=== PATIENT | male | born 1980 | race Caucasian/White ===

== ENCOUNTER 2016-07-20 15:29 | Emergency (ER) | payer OTHER ==
[~2016-07-20] VITALS: Ht 180.3 cm; Wt 121.5 kg
[~2016-07-20 15:29] MED LIST: KETO10TA PO; OXYC1TAB3 PO
[2016-07-20] MEDS ORDERED: IBUP-1050 PO (15:44)
[2016-07-20 16:11] VITALS: TEMP 36.9; Ht 180.3 cm; Wt 121.5 kg
--- NOTE | 2016-07-20 16:49 | DIAGNOSTIC IMAGING REPORT ---
RIGHT HAND MIN 3 VIEWS ROUTINE CLINICAL HISTORY: right hand pain- car part dropped on it Right trauma. Pain. COMPARISON: None. DISCUSSION: Mild soft tissue edema. No acute bony abnormality. Cortical margins are intact. IMPRESSION: Dorsal soft tissue edema. No acute bony abnormality. Electronically signed by: Kye Agee M.D. 07/20/2016 4:48 PM Dictated Date/Time: 07/20/2016 4:47 PM
[2016-07-20 17:11] VITALS: BP 153/106; PULSE 90; O2SAT 96
--- NOTE | 2016-07-20 17:13 | EMERGENCY ROOM VISIT NOTE ---
ED Visit Note First contact with patient: 16:10 CHIEF COMPLAINT: Hand pain HISTORY OF PRESENT ILLNESS: This 36-year-old male patient presented to the emergency department ambulatory complaining of pain in the right hand. The patient reports that 2 days ago, a heavy car part fell on his hand. The patient reports pain and swelling in the hand. He rates his discomfort an 8/ 10. With a history of compartment syndrome in this hand. He states he has not been seen recently for his hand, but had been seen by orthopedics locally over the summer. He reports numbness in the third fourth and fifth fingers. He denies any weakness. He is not taking any medications for pain. He denies any other injuries. REVIEW OF SYSTEMS: A 6 system review of systems was completed with positives and pertinent negatives in the HPI. ALLERGIES: Phenytoin, prochlorperazine MEDICATIONS: Gabapentin, Keppra PMH: Compartment syndrome, hand surgery SOCIAL HISTORY: The patient lives locally with family. PHYSICAL EXAM: Vital Signs: Reviewed Nurse's notes, vital signs stable. GENERAL : This is a 36-year-old male, in no acute distress, but appears to be in pain, well-developed, well-nourished. MUSCULOSKELETAL: There is moderate soft tissue swelling of the dorsal aspect of the right hand. There is no significant erythema or warmth. There are multiple well-healing surgical scars. There is diffuse tenderness over the right hand. Dictating Machine Mechanic strength 5/5. Full range of motion of the fingers. There is no laceration. Capillary refill less than 2 seconds. No tenderness of the fingers or wrist. Full range of motion of the wrist. No snuff box tenderness. Radial pulse 2+. NEURO: Alert and oriented to person, place, and time. Normal sensation to light and sharp touch. RADIOGRAPHIC FINDINGS: RIGHT HAND MIN 3 VIEWS ROUTINE CLINICAL HISTORY: right hand pain- car part dropped on it Right trauma. Pain. COMPARISON: None. DISCUSSION: Mild soft tissue edema. No acute bony abnormality. Cortical margins are intact. IMPRESSION: Dorsal soft tissue edema. No acute bony abnormality. EMERGENCY DEPARTMENT COURSE: I examined the patient. An x-ray of the right hand was reviewed by myself and radiology and shows soft tissue swelling with no acute fracture. I spoke with Aamir Wall PA-C with [facility], who has seen the patient in the past. He feels that the patient's swelling is due to chronic issues rather than acute compartment syndrome. He does report that it appears the patient has been seen by his primary care provider last week and was also complaining of hand swelling at that time. However, the patient told me that his injury just occurred 2 days ago. I reviewed the patient's record on the [place] prescription drug monitoring program, and it appears that the patient has received multiple prescriptions for narcotic medications from multiple providers throughout the [facility] over the past 9 months. It also appears that the patient uses different addresses when receiving prescriptions. I do suspect drug-seeking behavior. The patient does have a history of becoming angry and threatening providers when he does not receive narcotics. For this reason, the patient will not be provided any narcotic medications today. He was informed of this and was instructed to follow-up with orthopedics when he is able. He will return for worsening symptoms. He verbalized understanding. The patient was discharged home in good condition. DIAGNOSIS: Right hand contusion Problem List Medical Problems: (1) Seizure disorder Status: Chronic Surgical Problems: (1) History of fasciotomy Status: Resolved Social History Problems: (1) Status post decompression of compartment syndrome Status: Resolved Current/Historical Medications Scheduled Gabapentin (Gabapentin), 900 MG PO QID Levetiracetam (Keppra), 1,500 MG PO BID Scheduled PRN Ibuprofen (Advil), 400 MG PO UD PRN for Pain Allergies Coded Allergies: Phenytoin (Verified Allergy, Severe, rash, can't breathe, 12/22/15) Prochlorperazine (Verified Allergy, Severe, "irritated, couldn't breathe" , 12/22/15) Vital Signs Date Time Temp Pulse Resp B/P Pulse Ox O2 Delivery O2 Flow Rate FiO2 07/20/16 17:11 90 18 153/106 96 Room Air 07/20/16 16:11 36.9 116 18 163/97 98 Room Air Departure Information Impression Primary Impression: Right hand pain Dispostion Home / Self-Care Condition GOOD Referrals Jovani Ortega D.O. (PCP) Forms HOME CARE DOCUMENTATION FORM, IMPORTANT VISIT INFORMATION Patient Instructions [facility] Additional Instructions Follow up with [facility] for further evaluation of hand pain. For pain control, you can use the following [id number] medicines (if >12 yo): - Regular strength (325mg/tab) Tylenol (acetaminophen) 2 tabs every 4-6 hours as needed. Do not exceed 12 tablets in a 24 hour period. Avoid taking more than 4 grams (4000 mg) of Tylenol per day. This includes any other sources of acetaminophen you may take on a regular basis. - Regular strength (200 mg/tab) Advil (ibuprofen) 1-2 tabs every 4-6 hours as needed. Do not exceed a dose of 3200 mg per day. Apply ice to the hand and elevate for swelling. Return for worsening symptoms.
[2016-07-20] MEDS ORDERED: NRN300 PO (20:55)
[2016-07-20] MEDS ORDERED: LEVE500T13 PO (20:55)
== END 2016-07-20 17:12 | disposition home or self-care (01) ==
LOC: C.EDB 15:32 → C.EDD 17:12
DX: S60.221A Contusion of right hand, initial encounter (principal); W22.8XXA Striking against or struck by other objects, initial encounter; G40.909 Epilepsy, unspecified, not intractable, without status epilepticus